=== PATIENT | female | born 1995 | race African-American/Black ===

== ENCOUNTER 2016-12-13 08:20 | Emergency (ER) | payer SELFPAY ==
[~2016-12-13] VITALS: Ht 160 cm; Wt 56.2 kg
[2016-12-13 10:02] LABS: HEMOGLOBIN 13.2 g/dL (11.7-16.4)
[2016-12-13 10:12] LABS: ASPARTATE AMINO TRANSFERASE 4 U/L (15-37); BLOOD UREA NITROGEN 8 mg/dL (7-18)
[2016-12-13] MEDS ORDERED: ONDANSETRON ODT 4 MG ONE (10:47)
[2016-12-13] MEDS ORDERED: PROMETHAZINE 25 MG/ML, 1ML IM ONE (11:00)
[2016-12-13] MEDS ORDERED: ONDANSETRON ODT 4 MG PO ONE (11:00)
[2016-12-13 11:15] VITALS: BP_DIAS 52
[2016-12-13 12:39] VITALS: BP_SYST 90
== END 2016-12-13 12:41 | disposition home or self-care (01) ==
LOC: ED 11:34
DX: O21.0 Mild hyperemesis gravidarum (principal)
CPT/HCPCS: 36415; 76801; 80053; 81001; 84702; 85025; 87086; 99285; Q0162

== ENCOUNTER 2019-08-29 20:43 | Emergency (ER) | payer MEDICAID ==
[~2019-08-29] VITALS: Ht 160 cm; Wt 60.6 kg
--- NOTE | 2019-08-29 21:21 | NUR ---
PT ABLE TO AMBULATE STEADILY TO BATHROOM TO PROVIDE URINE SAMPLE. PT PLACED ON VITALS MONITORS, CALL LIGHT WITHIN REACH. WILL CONTINUE TO MONITOR.
[2019-08-29] MEDS ORDERED: ACETAMINOPHEN 500 MG TABLET PO ONE (21:30)
[2019-08-29] MEDS ORDERED: IBUPROFEN 600 MG TABLET PO ONE (21:30)
[2019-08-29 22:07] LABS: MICROSCOPIC INDICATED
[2019-08-29 22:08] LABS: HCG UR SG 1.025 (1.003-1.030)
[2019-08-29 22:12] LABS: CLUE CELLS NONE SEEN (NONE SEEN); WET PREP WBCS FEW (FEW)
[2019-08-29 22:19] LABS: CULTURE INDICATED? YES
[2019-08-29] MEDS ORDERED: ACETAMINOPHEN 500 MG TABLET ONE (22:43)
[2019-08-29] MEDS ORDERED: IBUPROFEN 600 MG TABLET ONE (22:43)
[2019-08-29 22:50] VITALS: BP 100/48
[2019-08-29] MEDS ORDERED: CEFDINIR 300 MG CAPSULE ONE (22:57)
[2019-08-29] MEDS ORDERED: CEFDINIR 300 MG CAPSULE PO ONE (23:00)
== END 2019-08-29 23:05 | disposition home or self-care (01) ==
LOC: ED 22:18
DX: N30.01 Acute cystitis with hematuria (principal)
CPT/HCPCS: 81001; 81025; 87077; 87086; 87186; 87210; 87491; 87591; 87808; 99284

== ENCOUNTER 2019-12-18 15:21 | Emergency (ER) | payer MEDICAID ==
[~2019-12-18] VITALS: Ht 162.6 cm; Wt 57.0 kg
[2019-12-18 15:24] VITALS: BP 103/51
== END 2019-12-18 16:11 ==
LOC: ED 16:05
DX: J00 Acute nasopharyngitis [common cold] (principal); R06.00 Dyspnea, unspecified
CPT/HCPCS: 99281